=== PATIENT | male | born 1945 | race Caucasian/White ===

== ENCOUNTER → 2024-01-26 | Outpatient (CLI) | payer MEDICARE, SELFPAY ==
[2024-01-26 13:16] LABS: Basophils # (Auto) 0.1 Thou/mm3 (0.0-0.2); Basophils % (Auto) 1 % (0-2.5); Eosinophils # (Auto) 0.1 Thou/mm3 (0.0-0.5); Eosinophils % (Auto) 1 % (0-10); Hematocrit 44.7 % (41.0-53.0); Hemoglobin 15.1 g/dL (13.5-16.0); Immature Granulocytes % (Auto) 0 % (0-0); Immature Granulocytes Auto 0.02 Thou/mm3 (0.00-0.00); Lymphocytes # (Auto) 1.4 Thou/mm3 (1.0-4.8); Lymphocytes % (Auto) 16 % (10-50); Mean Corpuscular HGB Conc 33.8 g/dl (31.0-37.0); Mean Corpuscular Hemoglobin 30.9 pg (25.0-35.0); Mean Corpuscular Volume 91 fL (80-100); Monocytes # (Auto) 0.6 Thou/mm3 (0.0-0.8); Monocytes % (Auto) 7 % (0-12); Neutrophils # (Auto) 6.7 Thou/mm3 (1.8-7.7); Neutrophils % (Auto) 75 % (37-80); Nucleated Red Blood Cell % 0 /100 WBC (0); Platelet Count 256 Thou/mm3 (140-440); RDW Standard Deviation 45.4 fL (35.1-43.9); Red Blood Count 4.89 Miln/mm3 (4.50-5.90); White Blood Count 8.8 Thou/mm3 (3.8-10.6)
[2024-01-26 13:26] LABS: Glucose Estimated Average 252 mg/dL (80-131); Hemoglobin A1C 10.4 % Hgb (4.8-6.0)
[2024-01-26 13:33] LABS: Prostate Specific Antigen 1.73 ng/mL (0-4.00)
[2024-01-26 13:37] LABS: Vitamin B12 439 pg/mL (211-911); Vitamin D 25 Hydroxy Total 13.6 ng/mL (7.3-40.2)
[2024-01-26 13:38] LABS: Alanine Aminotransferase 20 U/L (10-49); Albumin, Serum 4.4 gm/dL (3.4-4.8); Alkaline Phosphatase 85 U/L (46-116); Anion Gap 8 (7-16); Aspartate Amino Transferase 13 U/L (0-34); BUN/Creatinine Ratio 27 Ratio (12-20); Bilirubin,Total 0.8 mg/dL (0.3-1.2); Blood Urea Nitrogen 27 mg/dL (9-23); Calcium 10.1 mg/dL (8.3-10.6); Calcium (Corrected) 10.1 mg/dL (8.5-10.1); Carbon Dioxide 25.6 mMol/L (20.0-31.0); Cardiac Risk Estimate 2.5 RATIO (4.0-6.7); Chloride 105 mMol/L (98-107); Cholesterol 113 mg/dL (132-200); Globulin 2.2 gm/dL (2.3-3.5); Glucose 196 mg/dL (74-106); HDL Cholesterol 46 mg/dL (40-60); LDL Cholesterol,Calculated 55 mg/dL (0-130); Osmolality,Calculated 287 (275-295); Potassium 3.4 mMol/L (3.4-5.1); Sodium 139 mMol/L (136-145); Thyroid Stimulating Hormone 0.73 uIU/mL (0.55-4.78); Total Protein 6.6 gm/dL (5.7-8.2); Triglycerides 62 mg/dL (30-150); Uric Acid 7.2 mg/dL (3.7-9.2); eGFR > 60 See Note
[2024-01-26 14:08] LABS: Collection Type, Urine Clean Catch; Squamous Epithelial Cell,Urine 0 /hpf (0-5)
[2024-01-26 14:21] LABS: Bilirubin,Urine Negative (Negative); Blood,Urine Negative (Negative); Clarity,Urine Clear (Clear/Hazy); Color,Urine Lt-Yellow (Lt Yel-Yel); Glucose, Urine 4+ (Negative); Ketones,Urine Negative (Negative); Leukocyte Esterase,Urine Negative (Negative); Nitrite,Urine Negative (Negative); Protein,Urine Negative (Neg - Trace); RBC,Urine 1 /hpf (0-3); Specific Gravity,Urine 1.028 (1.001-1.035); Urobilinogen,Urine Negative mg/dL (0.0-1.0); WBC,Urine 1 /hpf (0-5)
[2024-01-26 14:32] LABS: Creatinine MALB Rnd Ur 42 mg/dL (30-125); Microalbumin, Random Urine < 3 mg/L (0-300)
== END | disposition home or self-care (01) ==
LOC: COPL 12:45
PROVIDERS: PCP Internal Medicine; Referring Provider Internal Medicine; Visit Provider Internal Medicine
DX: E11.9 Type 2 diabetes mellitus without complications (principal); I10 Essential (primary) hypertension; E78.5 Hyperlipidemia, unspecified
CPT/HCPCS: 36415; 80053; 80061; 81001; 82043; 82306; 82570; 82607; 83036; 84153; 84443; 84550; 85025

== ENCOUNTER 2024-06-05 12:53 | Day surgery (SDC) | payer MEDICARE, SELFPAY ==
[2024-06-03 17:49] LABS: Basophils # (Auto) 0.1 Thou/mm3 (0.0-0.2); Basophils % (Auto) 1 % (0-2.5); Eosinophils # (Auto) 0.2 Thou/mm3 (0.0-0.5); Eosinophils % (Auto) 2 % (0-10); Hemoglobin 15.4 g/dL (13.5-16.0); Immature Granulocytes % (Auto) 0 % (0-0); Immature Granulocytes Auto 0.03 Thou/mm3 (0.00-0.00); Lymphocytes # (Auto) 2.1 Thou/mm3 (1.0-4.8); Lymphocytes % (Auto) 22 % (10-50); Mean Corpuscular HGB Conc 33.5 g/dl (31.0-37.0); Mean Corpuscular Hemoglobin 30.6 pg (25.0-35.0); Mean Corpuscular Volume 91 fL (80-100); Monocytes # (Auto) 0.8 Thou/mm3 (0.0-0.8); Monocytes % (Auto) 8 % (0-12); Neutrophils # (Auto) 6.4 Thou/mm3 (1.8-7.7); Neutrophils % (Auto) 67 % (37-80); Nucleated Red Blood Cell % 0 /100 WBC (0); Platelet Count 271 Thou/mm3 (140-440); RDW Standard Deviation 42.6 fL (35.1-43.9); Red Blood Count 5.04 Miln/mm3 (4.50-5.90); White Blood Count 9.5 Thou/mm3 (3.8-10.6)
[2024-06-03 17:54] LABS: Partial Thromboplastin Time 24.3 Seconds (22.0-36.0); Prothrombin Time 10.7 Seconds (9.0-12.2)
[2024-06-03 18:02] LABS: Anion Gap 11 (7-16); BUN/Creatinine Ratio 30 Ratio (12-20); Blood Urea Nitrogen 30 mg/dL (9-23); Calcium 9.9 mg/dL (8.3-10.6); Carbon Dioxide 25.2 mMol/L (20.0-31.0); Chloride 105 mMol/L (98-107); Glucose 272 mg/dL (74-106); Osmolality,Calculated 297 (275-295); Sodium 141 mMol/L (136-145); eGFR > 60 See Note
[2024-06-04 09:56] VITALS: BMI 27.4
[2024-06-05] VITALS (11 sets, daily range): BP systolic 102–143; BP diastolic 57–95; PULSE 63–77; RESP 13–20; TEMP 36.4–36.9; O2SAT 92–94; BMI 27.7
--- NOTE | 2024-06-05 13:21 | PD.CARDCATH ---
Cardiac Cath Procedure Procedure Name Date of procedure: 06/05/2024 RESEARCH GENETICIST: Anjum Head MD PROCEDURE PERFORMED: 1. Left heart cardiac catheterization including right, left coronary angiograms and left ventriculogram 2. Ultrasound-guided access of the right radial artery 3. Conscious sedation for 30 minutes. HISTORY AND INDICATIONS: Patient was explained the risk benefits and alternatives of performing a left heart cardiac catheterization including the risk of bleeding, heart attack, stroke and in detail and the agreeable for the procedure. Consent signed, placed in the chart and H&P updated. DESCRIPTION OF PROCEDURE: The patient was brought to the cardiac catheterization lab and all asceptic precautions were followed. Patient was given 1 Mg of Versed and 50 mcg of fentanyl for moderate conscious sedation. 2 mL of lidocaine was given in the right wrist. The right radial artery was accessed via the ultrasound guidance as well as micropuncture technique. A 6 [place] glide sheath was introduced. We then used a 5 [place] TIG 4 catheter to perform the left and right coronary angiograms as well as a left ventriculogram which showed the following findings. 1. Left ventricular ejection fraction was normal at 55 to 60% without any regional wall motion abnormalities. LVEDP was normal at 18 mmHg. There was no significant transvalvular aortic gradient. 2. Right dominant circulation 3. Left main artery is a large-caliber vessel without any significant stenosis. 4. LAD is a large sized artery with 30-40% stenosis and a medium size diagonal and without show any significant disease. 5. LCx is a large sized artery with 30-40% stenosis and a medium OM1 and small OM2 without any significant disease. 6. RCA is a large artery with 50% stenosis of the distal portion, and medium RPDA and RPL without any significant disease. A radial band was used to achieve the hemostasis of the right radial artery access. Patient will be monitored in the cardiac cutting machine fixer for the next 2 to 3 hours and will be discharged home / telemetry later today if hemodynamically stable. Complications: None Specimens: None Blood loss: Estimated 5-10 ml Summary/findings: 1. Abnornal Stress test: Moderate CAD- LHC showed 50 % stenosis of the proximal RCA with mild disease of distal RCA, and 30-40% stenosis of LCx and LAD. Rest of the coronaries without any angiographically significant obstruction. 2. LVEF was normal at 55-60% and normal LVEDP of 18 mmHg. No transvalvular aortic gradient. Recommendations: 1. Recommended aggressive risk factor modification and aggressive medical treatment 2. Recommended no lifting more than 5 pounds for next 7-10 days and follow up in my office in 7 days. Anjum Head MD Interventional Cardiology.
[2024-06-05] MEDS: SODIUM CHLORIDE 0.9% 500 ML 500 ML 200 ML IV (16:31)
--- NOTE | 2024-06-05 17:44 | PC.NURSE ---
1616 patient is awake, alert, breathing unlabored, s/p LHC by Dr. Head, TR band present to right wrist, no bleeding or hematoma noted, report received from Liyah AMADOR, tesha to discharge patient home after 2 hrs per MD.
--- NOTE | 2024-06-05 18:20 | PC.NURSE ---
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
--- NOTE | 2024-06-05 19:11 | PC.NURSE ---
1900 patient's ride arrived, discharge instructions given to patient and friend 1901 patient is awake, alert, breathing unlabored, dressing to right wrist dry with no bleeding or hematoma, patient able to ambulate to bathroom and void, able to eat dinner tray with no nausea or vomiting, meets discharge criteria, discharge instructions given to patient and friend, patient discharged home in wheelchair with all belongings. patient educated to avoid lifting heavy things over 5 pounds and moving right wrist for 2-3 days. patient educated to hold metformin for 48 hrs.
== END 2024-06-05 19:02 | disposition home or self-care (01) ==
PROVIDERS: PCP Internal Medicine; Referring Provider Internal Medicine Cardiovascular Disease; Visit Provider Internal Medicine Cardiovascular Disease
PROC: (CPT 93458; principal; 2024-06-05 12:45)
DX: I25.10 Atherosclerotic heart disease of native coronary artery without angina pectoris (principal); I47.19 Other supraventricular tachycardia; I10 Essential (primary) hypertension; E78.5 Hyperlipidemia, unspecified; E11.9 Type 2 diabetes mellitus without complications; I49.9 Cardiac arrhythmia, unspecified
CPT/HCPCS: 93458; 36415; 80048; 85025; 85610; 85730; 99152; 99153; A4649; C1769; C1887; C1894; J0171; J0461; J1643; J2250; J2310; J2371; J3010; J3490; J7040; Q9967; J2305

== ENCOUNTER 2024-06-06 21:25 | Emergency (ER) | payer MEDICARE, SELFPAY ==
[2024-06-06 21:26] VITALS: BMI 27.4
[2024-06-06 22:05] VITALS: BP 160/76; PULSE 82; RESP 18; TEMP 37.1; O2SAT 95
--- NOTE | 2024-06-06 22:31 | PD.EDMALE ---
ED Male Genitalurinary RME/HPI General Chief complaint: Urogenital-Male Stated complaint: URINATING BLOOD TODAY Time Seen by Provider: 06/06/24 22:13 Arrival date/time: 06/06/24 21:25 78M with history of HTN and DM presents to ED with 1 day of hematuria/dysuria. Patient had a heart cath procedure today (done from [facility]). Patient denies flank pain, N/V, CP, SOB, and weakness. Limitations: no limitations Related Data Home Medications ?Medication ?Instructions ?Recorded ?Confirmed amlodipine 5 mg tablet 5 mg PO QDAY 06/05/24 06/05/24 aspirin 81 mg tablet,delayed 81 mg PO QDAY 06/05/24 06/05/24 release (Adult Low Dose Aspirin) atorvastatin 80 mg tablet 80 mg PO QDAY 06/05/24 06/05/24 empagliflozin 25 mg tablet 25 mg PO QDAY 06/05/24 06/05/24 (Jardiance) ergocalciferol (vitamin D2) 1,250 1,250 mcg PO QWEEK 06/05/24 06/05/24 mcg (50,000 unit) capsule hydrochlorothiazide 25 mg tablet 25 mg PO QDAY 06/05/24 06/05/24 metformin 500 mg tablet 500 mg PO BID 06/05/24 06/05/24 Held on 06/05/24. Instructions: Resume on 06/07/24. hold for 48 hours, may resume on Monday evening 06/07/2024 metoprolol succinate 25 mg 25 mg PO QDAY 06/05/24 06/05/24 tablet,extended release 24 hr Previous Rx's ?Medication ?Instructions ?Recorded cefuroxime axetil 500 mg tablet 500 mg PO BID 10 days #20 tabs 06/07/24 Allergies Allergy/AdvReac Type Severity Reaction Status Date / Time No Known Allergies Allergy Verified 06/06/24 21:26 Review of Systems Review of Systems Systems Reviewed: All systems reviewed, normal except as documented Constitutional Constitutional: Reports system reviewed and no additional complaints, except as documented, Denies fever(s) and Denies headache(s) ENT Ears, Nose, Mouth, and Throat: Denies disequilibrium and Denies headache(s) Cardiovascular Cardiovascular: Reports system reviewed and no additional complaints, except as documented, Denies chest pain and Denies dyspnea Respiratory Respiratory: Reports system reviewed and no additional complaints, except as documented, Denies cough and Denies dyspnea Gastrointestinal Gastrointestinal: Reports system reviewed and no additional complaints, except as documented, Denies abdominal pain, Denies nausea and Denies vomiting Genitourinary Genitourinary: Reports as per HPI, Reports dysuria and Reports hematuria Neurologic Neurologic: Reports system reviewed and no additional complaints, except as documented, Denies confusion, Denies disequilibrium and Denies headache(s) Psychiatric Psychiatric: Denies confusion Past Medical History Past Medical History NEUROLOGIC: Negative Neurological Disorders CARDIAC: Negative Cardiac Disorders or Congestive Heart Failure RESPIRATORY: Negative Chronic Obstructive Pulmonary Disease (COPD) GASTROINTESTINAL: Negative Gastrointestinal Disorders GENITOURINARY: Negative Genitourinary Disorders or Renal Disease MUSCULOSKELETAL: Negative Musculoskeletal Disorders ENDOCRINE: Negative Endocrine Disorders, Diabetes Mellitus Type 1 or Diabetes Mellitus Type 2 HEMATOLOGIC: Negative Blood Disorders Surgical History SURGICAL: Positive Tonsillectomy Social History SMOKING STATUS: Never smoker ED Exam General Limitations: Present no limitations General appearance: Present alert and in no apparent distress Head Head exam: Present atraumatic Eye Eye exam: Present normal appearance, PERRL and EOMI ENT ENT exam: Present normal exam, normal oropharynx and mucous membranes moist Neck Neck exam: Present normal inspection, full ROM and trachea midline Chest Chest inspection: Present normal inspection and symmetric chest wall rise Respiratory Respiratory exam: Present normal lung sounds bilaterally Cardiovascular Cardiovascular exam: Present regular rate, normal rhythm and normal heart sounds Abdominal Exam Abdominal exam: Present soft and normal bowel sounds Extremities Exam Extremities exam: Present normal inspection and full ROM Back Exam Back exam: Present normal inspection and full ROM Neurological Exam Neurological exam: Present alert, oriented X3 and CN II-XII intact Psychiatric Psychiatric exam: Present normal affect and normal mood Skin Skin exam: Present warm, dry, intact and normal color Course Quality Measures none Orders Category Date Time Status CT abdomen pelvis wo con Stat Exams 06/06/24 23:21 Taken Urinalysis, C/S if Indicated Stat Lab 06/06/24 22:18 Completed Urine Culture Stat Lab 06/06/24 22:18 Received cefTRIAXone [Rocephin] 1,000 mg Med 06/07/24 01:31 Discontinued Lidocaine 1% 20 ml [Xylocaine 1% 20 ML] 2.1 ml IM X1 Vital Signs Vital signs: Vital Signs Temperature 98.7 F 06/06/24 22:05 Pulse Rate 82 06/06/24 22:05 Respiratory Rate 18 06/06/24 22:05 Blood Pressure 160/76 H 06/06/24 22:05 Pulse Oximetry (%) 95 06/06/24 22:05 Oxygen Delivery Method Room Air 06/06/24 22:05 O2 at 95% on RA and WNLs Urogenital - Male MDM Narrative MDM Narrative:: 78M with history of HTN and DM presents to ED with 1 day of hematuria/dysuria. Patient had a heart cath procedure today (done from [facility]). Patient denies flank pain, N/V, CP, SOB, and weakness. Physical exam reveals no flank tenderness. Patient is afebrile, calm, and alert. UA suggests UTI. CT no kidney stone or hydronephrosis. Patient data External records reviewed:: [facility] previous records Clinical information provided by:: patient Social determinants that could affect healthcare access:: none Patient has the following chronic illnesses:: HTN and DM How is presenting disease/condition affected by chronic disease/condition?: exacerbated by Evaluation data The following diagnostics were reviewed and interpreted by me:: lab results Lab and/or radiology exams considered but not ordered:: ordered Interpretation Summary: above Medications / Prescriptions Medications or Prescriptions considered but not ordered:: ordered Medication administrations:: Medication Administration History Discontinued Medications Ceftriaxone Sodium 1,000 mg/ (Lidocaine HCl 2.1 ml) 0 mg IM X1 ONE Stop: 06/07/24 01:32 above Consultations Consultation(s) initiated? (list below): No Diagnosis Urogenital Male Differential Diagnosis: urinary tract infection, priapism, urethritis, epididymitis, genital herpes simplex, prostatitis, acute retention of urine, inguinal hernia and other (kidney stone) Most likely diagnosis given after review of the tests above:: UTI Admission Indicated Admission indicated?: not indicated Admission Request Was there a request for admission?: No Disposition Plan Disposition Plan: Discharge Discharge Attestation Discharge Attestation: The patient and all family members were given an opportunity to ask questions and understood the discharge instructions. Discharge instructions specifically effects, indications for sooner follow up or return to the emergency department, and the expected course of current diagnosis. Patient condition: Stable Discharge Plan Plan Patient Disposition: HOME (Self Care) Disposition Comment: Stable Prescriptions/Referrals Prescriptions/Med Rec: New cefuroxime axetil 500 mg tablet 500 mg PO BID 10 Days Qty: 20 0RF No Action ergocalciferol (vitamin D2) 1,250 mcg (50,000 unit) capsule 1,250 mcg PO QWEEK amlodipine 5 mg tablet 5 mg PO QDAY metoprolol succinate 25 mg tablet extended release 24 hr 25 mg PO QDAY Jardiance 25 mg tablet 25 mg PO QDAY hydrochlorothiazide 25 mg tablet 25 mg PO QDAY aspirin [Adult Low Dose Aspirin] 81 mg tablet,delayed release (DR/EC) 81 mg PO QDAY metformin 500 mg tablet 500 mg PO BID atorvastatin 80 mg tablet 80 mg PO QDAY Referrals: No Primary/Family,Physician [Primary Care Provider] - In 1 week Problem List Clinical Impression: Urinary tract infection Patient/Caregiver Discharge Instructions Education Materials: ED Bladder Infection, Male (Adult) Additional Instructions: Please follow-up with PCP within 24-48 hours and return immediately if symptoms worsen. Print Language: Kazakh Stand Alone Forms: Patient Portal Info Letter PA/PHOTOGRAPHY MANAGER Supervising Physician PA/PHOTOGRAPHY MANAGER Supervising Physician: Dr. Roman
[2024-06-06 22:45] LABS: Collection Type, Urine Clean Catch; Squamous Epithelial Cell,Urine 0 /hpf (0-5)
[2024-06-06 23:18] LABS: Bilirubin,Urine Negative (Negative); Blood,Urine 3+ (Negative); Clarity,Urine Turbid (Clear/Hazy); Color,Urine Dark-Brown (Lt Yel-Yel); Culture Indicated,Urine Yes; Glucose, Urine 4+ (Negative); Ketones,Urine 1+ (Negative); Leukocyte Esterase,Urine Positive (Negative); Nitrite,Urine Negative (Negative); Protein,Urine 2+ (Neg - Trace); RBC,Urine 3178 /hpf (0-3); Specific Gravity,Urine 1.034 (1.001-1.035); Urobilinogen,Urine Negative mg/dL (0.0-1.0); WBC,Urine 1802 /hpf (0-5)
--- NOTE | 2024-06-06 23:21 | XR_ITS ---
Examination: CT abdomen and pelvis without contrast. Coronal 3-D reconstructions. Sagittal 2-D reconstructions. Date and time of exam:June 06, 2024 11:56 PM Indications: Hematuria and dysuria today CTDI: vol (mGy): 7.56 DLP: (mGycm): 481 Technique: Axial images of the abdomen have been obtained, 3 mm slice thickness Intravenous contrast material has not been administered. Low dose protocols were performed. One or more of the following dose reduction techniques were used; automated exposure control, adjustment of the mA and/or KV according to patient size, use of iterative reconstruction technique. Findings: Liver spleen intact Absent gallbladder. No pancreatic mass. Moderate renal parenchymal scar formation. No renal or ureteral calculi, no hydronephrosis. Abdominal aortic calcification. Small fat-containing umbilical hernia. Normal appendix. No bowel obstruction. Thickening of urinary bladder wall up to 10 mm Large fat-containing inguinal hernias Moderate osteopenia Impression: Moderate bilateral renal cortical scar formation No renal or ureteral calculi, no hydronephrosis. Normal appendix. Thickening of urinary bladder wall up to 10 mm, differential would include cystitis
--- NOTE | 2024-06-07 01:13 | PRELIM_ITS ---
CT scan of the abdomen and pelvis without intravenous contrast (axial sections with sagittal and coronal reformats) June 06, 2024 2355 hours Clinical History: hematuria/dysuria; r/o stone Comparison: No prior study is available for comparison. Findings: The evaluation is slightly limited due to motion artifact. The lung bases are clear. There is elevated right diaphragm. A small hiatal hernia is present. The gallbladder is surgically absent. There are bilateral renal cysts, the largest measuring 4 cm in the left kidney. There is bilateral perinephric fat stranding, nonspecific. The liver, pancreas, spleen, and adrenals are unremarkable on this noncontrast study. No evidence of bowel obstruction. A moderate amount of fecal material is present in the colon. The appendix is within normal limits ([id number]). There is no mesenteric or retroperitoneal adenopathy. A small fat-containing umbilical hernia is present. There are small fat-containing bilateral inguinal hernias. The urinary bladder wall is mildly thickened with perivesical fat stranding, consistent with cystitis. There is bilateral perinephric fat stranding, nonspecific. There is no free fluid or free air. The osseous structures are unremarkable. Impression: No evidence of renal/ureteric calculus or hydroureteronephrosis. Finding consistent of cystitis. Other findings as described above. Report Electronically Signed By: Jose L Ramirez 06/07/2024 1:12:27 AM [EST]
[2024-06-07] MEDS: cefTRIAXone 1,000 MG, LIDOCAINE 1% 20 ML 2.1 ML IM (01:50)
[2024-06-07 01:55] VITALS: BP 128/75; PULSE 83; RESP 17; TEMP 36.9; O2SAT 97
== END 2024-06-07 02:09 | disposition home or self-care (01) ==
PROVIDERS: Physician Assistant; Emergency Provider Emergency Medicine
DX: N39.0 Urinary tract infection, site not specified (principal); E11.9 Type 2 diabetes mellitus without complications; I10 Essential (primary) hypertension
CPT/HCPCS: 74176; 81001; 87086; 96372; 99284; J0696; J3490

== ENCOUNTER 2024-07-16 05:55 | Day surgery (SDC) | payer MEDICARE, SELFPAY ==
--- NOTE | 2024-07-11 07:00 | EKG_ITS ---
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
[2024-07-11 13:30] LABS: Basophils # (Auto) 0.1 Thou/mm3 (0.0-0.2); Basophils % (Auto) 1 % (0-2.5); Eosinophils # (Auto) 0.1 Thou/mm3 (0.0-0.5); Eosinophils % (Auto) 1 % (0-10); Hematocrit 48.9 % (41.0-53.0); Hemoglobin 16.3 g/dL (13.5-16.0); Immature Granulocytes % (Auto) 0 % (0-0); Immature Granulocytes Auto 0.03 Thou/mm3 (0.00-0.00); Lymphocytes # (Auto) 2.2 Thou/mm3 (1.0-4.8); Lymphocytes % (Auto) 23 % (10-50); Mean Corpuscular HGB Conc 33.3 g/dl (31.0-37.0); Mean Corpuscular Hemoglobin 30.3 pg (25.0-35.0); Mean Corpuscular Volume 91 fL (80-100); Monocytes # (Auto) 0.7 Thou/mm3 (0.0-0.8); Monocytes % (Auto) 8 % (0-12); Neutrophils # (Auto) 6.2 Thou/mm3 (1.8-7.7); Neutrophils % (Auto) 67 % (37-80); Nucleated Red Blood Cell % 0 /100 WBC (0); Platelet Count 270 Thou/mm3 (140-440); RDW Standard Deviation 44.6 fL (35.1-43.9); Red Blood Count 5.38 Miln/mm3 (4.50-5.90); White Blood Count 9.3 Thou/mm3 (3.8-10.6)
[2024-07-11 13:52] LABS: Alanine Aminotransferase 13 U/L (10-49); Albumin, Serum 4.5 gm/dL (3.4-4.8); Alkaline Phosphatase 68 U/L (46-116); Anion Gap 9 (7-16); Aspartate Amino Transferase 16 U/L (0-34); BUN/Creatinine Ratio 20 Ratio (12-20); Bilirubin,Total 0.9 mg/dL (0.3-1.2); Blood Urea Nitrogen 16 mg/dL (9-23); Calcium 9.8 mg/dL (8.3-10.6); Calcium (Corrected) 9.8 mg/dL (8.5-10.1); Carbon Dioxide 29.6 mMol/L (20.0-31.0); Chloride 105 mMol/L (98-107); Creatinine (Component) 0.8 mg/dL (0.6-1.3); Globulin 2.3 gm/dL (2.3-3.5); Glucose 77 mg/dL (74-106); Osmolality,Calculated 287 (275-295); Potassium 3.5 mMol/L (3.4-5.1); Sodium 144 mMol/L (136-145); Total Protein 6.8 gm/dL (5.7-8.2); eGFR > 60 See Note
[2024-07-16] VITALS (7 sets, daily range): BP systolic 87–142; BP diastolic 45–83; PULSE 77–88; RESP 15–20; TEMP 36.1–36.3; O2SAT 94–97; BMI 27.9
[2024-07-16] MEDS: RINGERS LACTATED 1000 ML 1,000 ML 20 ML IV (06:34)
--- NOTE | 2024-07-16 09:43 | PD.SUROPNT ---
Date of Procedure 07/16/24 Pre Op Diagnosis Left forearm skin lesion suspicious for skin cancer Post Op Diagnosis Left forearm skin lesion suspicious for skin cancer Procedure Wide excision of left forearm skin lesion with intermediate wound closure Findings An approximately 2 centimeter raised and ulcerated left forearm skin lesion Procedure Description Patient brought into the operating room in supine position. After administration of monitored anesthesia care, patient's left forearm was shaved and prepped and draped in standard surgical manner. After administration of local anesthesia an approximately 7.5 x 2.5 cm elliptical incision was made around the incision and dissection was deepened into soft tissue. The skin lesion along with the margin and subcutaneous soft tissue excised circumferentially. The lesion was marked with sutures to orient the pathologist. The wound was washed and irrigated and hemostasis achieved using electrocautery. Circumferential flaps were raised for tension-free closure. Soft tissue reapproximated with interrupted sutures using 2-0 Vicryl. Subcutaneous tissue closed with interrupted sutures using 3-0 Vicryl and the incision was closed with 4-0 Monocryl in subcuticular fashion. Dermabond applied. Once Dermabond was dry sterile pressure dressings applied. Patient tolerated procedure well. He was breathing spontaneously and without difficulty and was transferred to postanesthesia care in stable condition. Instruments, needles and sponge counts were reported to be correct x 2. Anesthesia MAC and local Pathology / specimen Other (Left forearm skin lesion) Estimated Blood Loss 5 Condition Stable Disposition PACU Surgeon Danna Barragan MD Surgical Staff Operation Date: 07/16/24 10:00 Case Staff STAMPING BENCH DIE MAKER: Kolton Vidal RNtool room supervisor: Sully Teague
--- NOTE | 2024-07-16 09:48 | SUR.PHASEII ---
0948: Pt. wakes to name then drifts back to sleep, vitals stable, breathing unlabored, no complaint of pain or nausea, dressing to left forearm CDI, no active bleed noted, bilateral radial pulses strong and regular, cap refill to bilateral hands less than 3 seconds, report received from Tom SPIVEY and Genaro AMADOR.
--- NOTE | 2024-07-16 10:40 | SUR.PHASEII ---
1040: Pt. AAOx4, vitals stable, breathing unlabored, no complaint of pain or nausea, dressing to left forearm CDI, no active bleed noted, bilateral radial pulses strong and regular, cap refill to bilateral hands less than 3 seconds, gave discharge instructions to the pt. and his ride, both verbalized understanding and had no further questions. Pt. left with all personal belongings.
== END 2024-07-16 10:40 | disposition home or self-care (01) ==
PROVIDERS: Anesthesiology; Referring Provider Surgery; Visit Provider Surgery
PROC: (CPT 11406; principal; 2024-07-16 09:45)
DX: L85.8 Other specified epidermal thickening (principal); E11.9 Type 2 diabetes mellitus without complications; E78.00 Pure hypercholesterolemia, unspecified; I10 Essential (primary) hypertension; Z90.49 Acquired absence of other specified parts of digestive tract
CPT/HCPCS: 11406; 36415; 80053; 85025; 93005; A4217; A4649; J0690; J2704; J3010; J3490; J7120

== ENCOUNTER 2024-07-18 11:02 | Emergency (ER) | payer MEDICARE, SELFPAY ==
[2024-07-18 11:03] VITALS: BMI 26.6
[2024-07-18 11:36] VITALS: BP 135/86; PULSE 73; RESP 18; TEMP 36.6; O2SAT 95
[2024-07-18 11:40] VITALS: BMI 26.6
--- NOTE | 2024-07-18 11:42 | PD.EDWOUND ---
ED Wound/Laceration-RME/HPI General Chief Complaint: Wound Recheck / Suture Removal Stated Complaint: WOUND RECHECK Time Seen by Provider: 07/18/24 11:26 Source: patient Arrival date/time: 07/18/24 11:02 78-year-old male with a history of hyperlipidemia, hypertension, type 2 diabetes presents to the emergency room for a postoperative wound check. Patient recently had a cyst removed in his left forearm. Mode of arrival: ambulatory Limitations: no limitations Related Data Home Medications ?Medication ?Instructions ?Recorded ?Confirmed amlodipine 5 mg tablet 5 mg PO QDAY 06/05/24 07/11/24 aspirin 81 mg tablet,delayed 81 mg PO QDAY 06/05/24 07/16/24 release (Adult Low Dose Aspirin) atorvastatin 80 mg tablet 80 mg PO QDAY 06/05/24 07/11/24 ergocalciferol (vitamin D2) 1,250 1,250 mcg PO QWEEK 06/05/24 07/11/24 mcg (50,000 unit) capsule hydrochlorothiazide 25 mg tablet 25 mg PO QDAY 06/05/24 07/11/24 metformin 500 mg tablet 1,000 mg PO BID 06/05/24 07/15/24 metoprolol succinate 25 mg 25 mg PO QDAY 06/05/24 07/11/24 tablet,extended release 24 hr Previous Rx's ?Medication ?Instructions ?Recorded docusate sodium 100 mg capsule 100 mg PO BID #20 caps 07/16/24 (Colace) hydrocodone 5 mg-acetaminophen 325 1 tab PO Q8H PRN pain (scale score 07/16/24 mg tablet 7-10) #10 tabs Allergies Allergy/AdvReac Type Severity Reaction Status Date / Time No Known Allergies Allergy Verified 07/18/24 11:04 Review of Systems Review of Systems Systems Reviewed: All systems reviewed, normal except as documented Constitutional Constitutional: Reports system reviewed and no additional complaints, except as documented, Denies fatigue, Denies fever(s), Denies headache(s) and Denies weakness Eyes Eyes: Reports system reviewed and no additional complaints, except as documented, Denies blurry vision and Denies change in vision ENT Ears, Nose, Mouth, and Throat: Reports system reviewed and no additional complaints, except as documented, Denies otalgia, Denies headache(s), Denies nasal congestion, Denies throat swelling and Denies vertigo Cardiovascular Cardiovascular: Reports system reviewed and no additional complaints, except as documented, Denies chest pain, Denies dyspnea and Denies dyspnea on exertion Respiratory Respiratory: Reports system reviewed and no additional complaints, except as documented, Denies chest congestion, Denies cough, Denies dyspnea, Denies dyspnea on exertion and Denies wheezing Gastrointestinal Gastrointestinal: Reports system reviewed and no additional complaints, except as documented, Denies abdominal pain, Denies cramping, Denies nausea and Denies vomiting Genitourinary Genitourinary: Reports system reviewed and no additional complaints, except as documented, Denies dysuria and Denies hematuria Musculoskeletal Musculoskeletal: Reports system reviewed and no additional complaints, except as documented and Denies back pain Integumentary/Breasts Skin/Breast: Reports system reviewed and no additional complaints, except as documented and Reports wounds Neurologic Neurologic: Reports system reviewed and no additional complaints, except as documented, Denies confusion, Denies headache(s), Denies lack of coordination, Denies vertigo and Denies weakness Psychiatric Psychiatric: Reports system reviewed and no additional complaints, except as documented, Denies anxiety, Denies confusion, Denies depression, Denies paranoia, Denies suicidal ideation and Denies tactile hallucinations Endocrine Endocrine: Reports system reviewed and no additional complaints, except as documented and Denies fatigue Hematologic/Lymphatic Hematologic/Lymphatic: Reports system reviewed and no additional complaints, except as documented and Denies lymphadenopathy Allergic/Immunologic Allergic/Immunologic: Reports system reviewed and no additional complaints, except as documented, Denies throat swelling, Denies urticaria and Denies wheezing Past Medical History Past Medical History NEUROLOGIC: Negative Neurological Disorders or Seizures CARDIAC: Positive Cardiac Disorders, Hypercholesterolemia and Hypertension; Negative Congestive Heart Failure RESPIRATORY: Negative Chronic Obstructive Pulmonary Disease (COPD) GASTROINTESTINAL: Negative Gastrointestinal Disorders GENITOURINARY: Negative Genitourinary Disorders or Renal Disease MUSCULOSKELETAL: Negative Musculoskeletal Disorders ENDOCRINE: Positive Endocrine Disorders and Diabetes Mellitus Type 2; Negative Diabetes Mellitus Type 1 HEMATOLOGIC: Negative Blood Disorders OTHER HISTORY: Positive Chicken Pox and Cancer; Negative Autoimmune Disease, Blood Transfusions, Blood Transfusion Reaction or Anesthesia Reactions Family History FAMILY HISTORY: Negative Family Psychiatric Problems, Family Respiratory Disorders, Family Cardiac Disorders, Family Gastrointestinal Problems, Family Cancer, Family Surgery or Family Anesthesia Reaction Surgical History SURGICAL: Positive Cardiac Catheterization and Tonsillectomy Social History SMOKING STATUS: Never smoker ED Exam General Limitations: Present no limitations General appearance: Present alert and in no apparent distress Head Head exam: Present atraumatic Eye Eye exam: Present normal appearance, PERRL and EOMI ENT ENT exam: Present normal exam, normal oropharynx and mucous membranes moist Neck Neck exam: Present normal inspection, full ROM and trachea midline Chest Chest inspection: Present normal inspection and symmetric chest wall rise Respiratory Respiratory exam: Present normal lung sounds bilaterally Cardiovascular Cardiovascular exam: Present regular rate, normal rhythm and normal heart sounds Abdominal Exam Abdominal exam: Present soft and normal bowel sounds Extremities Exam Extremities exam: Present normal inspection and full ROM Expanded Upper Extremity Exam Shoulder exam: Present normal inspection Arm exam: Present normal inspection Elbow exam: Present normal inspection Forearm/Wrist exam: Present normal inspection Hand exam: Present normal inspection Vascular exam: Normal capillary refill Back Exam Back exam: Present normal inspection and full ROM Neurological Exam Neurological exam: Present alert, oriented X3 and CN II-XII intact Psychiatric Psychiatric exam: Present normal affect and normal mood Skin Skin exam: Present warm, dry, intact and normal color Course Quality Measures none Vital Signs Vital signs: Vital Signs Temperature 97.8 F 07/18/24 11:36 Pulse Rate 73 07/18/24 11:36 Respiratory Rate 18 07/18/24 11:36 Blood Pressure 135/86 H 07/18/24 11:36 Pulse Oximetry (%) 95 07/18/24 11:36 Oxygen Delivery Method Room Air 07/18/24 11:36 Wound / Laceration MDM Narrative MDM Narrative:: 78-year-old male with a history of hyperlipidemia, hypertension, type 2 diabetes presents to the emergency room for a postoperative wound check. Patient recently had a cyst removed in his left forearm. Patient is hemodynamically stable and in no apparent distress. Patient states he recently had a cyst removed in his left forearm 3 days ago. Patient states that they had instructed him to remove his dressing but states he has never done anything like this before so decided to come to the emergency room for us to check out the wound and then remove the dressing. The wound was examined there is no signs of any infection. There is no erythema no warmness to the touch. The wound is closed and approximated and appears to be healing correctly. Patient was discharged and educated to follow-up with primary care provider in the next 24 to 48 hours and return to the emergency room for any evidence of worsening signs or symptoms Patient data External records reviewed:: [facility] previous records Clinical information provided by:: patient Social determinants that could affect healthcare access:: none Patient has the following chronic illnesses:: Hypertension, hyperlipidemia, type 2 diabetes How is presenting disease/condition affected by chronic disease/condition?: uneffected by Evaluation data The following diagnostics were reviewed and interpreted by me:: lab results and radiology exam(s) Lab and/or radiology exams considered but not ordered:: Labs and radiology exams considered and ordered Interpretation Summary: N/A Medications / Prescriptions Medications or Prescriptions considered but not ordered:: No medication given Medication administrations:: No medication given Consultations Consultation(s) initiated? (list below): No Diagnosis Wound Differential Diagnosis: laceration, abrasion and other (Encounter for postoperative wound check) Most likely diagnosis given after review of the tests above:: Encounter for postoperative wound check Admission Indicated Admission indicated?: not indicated Admission Request Was there a request for admission?: No Disposition Plan Disposition Plan: Discharge Discharge Attestation Discharge Attestation: The patient and all family members were given an opportunity to ask questions and understood the discharge instructions. Discharge instructions specifically effects, indications for sooner follow up or return to the emergency department, and the expected course of current diagnosis. Patient condition: Stable Discharge Plan Plan Patient Disposition: HOME (Self Care) Disposition Comment: Stable Prescriptions/Referrals Prescriptions/Med Rec: No Action ergocalciferol (vitamin D2) 1,250 mcg (50,000 unit) capsule 1,250 mcg PO QWEEK amlodipine 5 mg tablet 5 mg PO QDAY metoprolol succinate 25 mg tablet extended release 24 hr 25 mg PO QDAY hydrochlorothiazide 25 mg tablet 25 mg PO QDAY aspirin [Adult Low Dose Aspirin] 81 mg tablet,delayed release (DR/EC) 81 mg PO QDAY metformin 500 mg tablet 1,000 mg PO BID atorvastatin 80 mg tablet 80 mg PO QDAY docusate sodium [Colace] 100 mg capsule 100 mg PO BID Qty: 20 0RF hydrocodone-acetaminophen 5-325 mg tablet 1 tab PO Q8H MDD 3 PRN (Reason: pain (scale score 7-10)) Qty: 10 0RF Problem List Clinical Impression: Encounter for postoperative wound check Patient/Caregiver Discharge Instructions Additional Instructions: Please follow-up with your primary care provider in the next 24 to 48 hours. Your postoperative wound appears to be healing appropriately and there is no signs of infection. The dressing was removed at your request. For any evidence of worsening signs or symptoms return to the emergency room immediately Print Language: Kiswahili Stand Alone Forms: Christine Award Info., Patient Portal Info Letter PA/ENROLLER Supervising Physician PA/ENROLLER Supervising Physician: Dr. Cr
== END 2024-07-18 12:13 | disposition home or self-care (01) ==
LOC: SERX 12:34
PROVIDERS: Emergency Provider Emergency Medicine
DX: Z48.00 Encounter for change or removal of nonsurgical wound dressing (principal); I10 Essential (primary) hypertension; E78.5 Hyperlipidemia, unspecified; E11.9 Type 2 diabetes mellitus without complications
CPT/HCPCS: 99281